=== PATIENT | female | born 1985 | race Caucasian/White ===

== ENCOUNTER → 2018-12-27 | Outpatient (CLI) | payer BC, OTHER ==
--- NOTE | 2018-12-30 07:48 | USB ---
Reason for exam: clinical finding. Indicated problem(s): lump or thickening in the left breast. Physical Findings: Nurse Summary: Patient complains of left breast lump 2 weeks ago, bruising resolving x 1 week (nurse mj). US Breast LT Left complete breast ultrasound includes all four quadrants, the retroareolar region and axilla. Finding demonstrates a 4 x 2 x 5mm oval, hypoechoic lesion at 2 o'clock at area of concern. These results were verbally communicated with the patient and result sheet given to the patient on 12/27/18. ASSESSMENT: Probably benign, BI-RAD 3 RECOMMENDATION: Ultrasound of the left breast in 3 months. Manage patient on a clinical basis.
== END | disposition home or self-care (01) ==
LOC: RADUSWWP 14:39
PROVIDERS: ATTEND Nurse Practitioner Family
DX: N63.20 Unspecified lump in the left breast, unspecified quadrant (principal)

== ENCOUNTER → 2020-01-09 | Outpatient (CLI) | payer OTHER ==
--- NOTE | 2020-01-09 11:01 | US ---
EXAMINATION TYPE: Transabdominal DATE OF EXAM: 01/09/2020 10:48 AM COMPARISON: NONE CLINICAL HISTORY: Z36 Confirm dates. EXAM PERFORMED: EXAM MEASUREMENTS: GESTATIONAL AGE / DATING Physician Established: Not yet established Dates by LMP: (8 weeks/6 days) EDC: 08/14/20 Dates by First Scan: No previous this is first scan Dates by Current Scan for: (9 weeks/ 0 days) EDC: 08/13/20 MATERNAL ANATOMY Uterus: 10.3 x 8.3 x 7.0cm Right Ovary: 2.3 x 1.3 x 1.5cm Left Ovary: 3.3 x 2.0 x 2.0cm Post CDS / Adnexa: wnl Presence of free fluid: no GESTATION / SURVEY CRL: 2.2cm (9 weeks/0 days) Yolk Sac (normal less than 6mm): 3mm Heart Rate: 144 bpm Rhythm: Normal IUP: Live IUP Date of LMP: 11/08/19 Beta HcG (if available): Not available at this time IMPRESSION: Single live intrauterine with a sonographic age of 9 weeks and 0 days and estim ated date of delivery of 08/13/2020, concordant with menstrual age.
[2020-01-09 12:18] LABS: HCT 45.8 % (34.0-46.0); HGB 14.7 gm/dL (11.4-16.0); MCH 29.1 pg (25.0-35.0); MCHC 32.2 g/dL (31.0-37.0); MCV 90.4 fL (80.0-100.0); Mean Platelet Volume 7.9; Platelet Count 233 k/uL (150-450); RBC 5.07 m/uL (3.80-5.40); RDW 12.2 % (11.5-15.5); WBC 9.6 k/uL (3.8-10.6)
[2020-01-09 12:25] LABS: African American GFR (CKD) >90 (>60 ml/min/1.73 sqM); Glucose 70 mg/dL (74-99); Non-African American GFR(CKD) >90 (>60 ml/min/1.73 sqM)
[2020-01-09 20:34] LABS: Hepatitis B Surface Antigen Non-Reactive (Non-Reactive)
[2020-01-13 05:00] LABS: Toxoplasma Antibody (IgG) <3.0 IU/mL (<7.2); Toxoplasma Antibody (IgM) <3.0 AU/mL (<8.0)
== END | disposition home or self-care (01) ==
LOC: RADUSWWP 10:18
PROVIDERS: ATTEND Obstetrics & Gynecology
DX: Z36.89 Encounter for other specified antenatal screening (principal); Z34.81 Encounter for supervision of other normal pregnancy, first trimester; Z3A.09 9 weeks gestation of pregnancy
CPT/HCPCS: 76801; 82565; 82947; 85027; 86762; 86777; 86778; 86780; 86850; 86900; 86901; 87340

== ENCOUNTER → 2020-03-24 | Outpatient (CLI) | payer OTHER ==
--- NOTE | 2020-03-24 16:21 | US ---
EXAMINATION TYPE: US OB anatomy transabd DATE OF EXAM: 03/24/2020 COMPARISON: US 2019 HISTORY: O36.62X0 Large for dates 2nd trimester LGA TECHNIQUE: Transabdominal (TA) EXAM MEASUREMENTS: GESTATIONAL AGE / DATING Physician Established: (20 weeks/1 days) EDC: 08/10/2020 Dates by LMP: (19 weeks/4 days) EDC: 08/14/2020 Dates by First Scan: (19 weeks/5 days) EDC: 08/13/2020 Dates by Current Scan for: (20 weeks/1 days) EDC: 08/10/2020 SURVEY IUP: Single PLACENTA: Posterior PREVIA: No previa ROSS: 11.4 cm Normal CERVICAL LENGTH (transabdominal: norm > 3.0cm): 4.5 cm BIOMETRY PRESENTATION: Breech LIE: Transverse lie BPD: 4.7 cm 20 weeks / 2 days HC: 18.0 cm 20 weeks / 3 days AC: 15.6 cm 20 weeks / 5 days FL: 3.3 cm 20 weeks / 2 days ESTIMATED WEIGHT IN GRAMS: 357.9 grams ESTIMATED WEIGHT IN LBS/OZ: 0 lbs. 13 oz. WEIGHT PERCENTAGE BASED ON ESTABLISHED DATE: 66 % HC/AC: 1.15 Normal FL/AC: 21.12 HEART RATE: 153 bpm RHYTHM: Normal ANATOMY SEEN (within normal limits): * Lateral Vent (< 1 cm) 0.7 cm * Cisterna Magna (< 1.1 cm) 0.5 cm * Nuchal Fold (< 0.6 cm) 0.3 cm * Cerebellum (varies with age) 1.8 cm Choroid Plexus (bilateral) Midline Falx Cavus Septi Pellucidi Four Chamber Heart Outflow tracts: LVOT/RVOT Stomach Situs Nose / Lips Diaphragm Kidneys (bilateral) Bilateral renal pelvis measuring 0.3cm Bladder Cord Insert Three Vessel Cord Longitudinal Spine Transverse Spine Arms (bilateral) Legs (bilateral) Viable single IUP measuring 20 weeks 1 day with a heart rate of 153bpm and an estimated delivery date of 08/10/2020. IMPRESSION: 1. Single intrauterine gestation estimated at 20 weeks 1 day gestation. Cardiac activity measures 15 3 bpm.
== END | disposition home or self-care (01) ==
LOC: RADUSWWP 09:32
PROVIDERS: ATTEND Obstetrics & Gynecology
DX: O36.62X0 Maternal care for excessive fetal growth, second trimester, not applicable or unspecified (principal); Z3A.20 20 weeks gestation of pregnancy
CPT/HCPCS: 76811

== ENCOUNTER → 2020-04-30 | Outpatient (CLI) | payer OTHER ==
[2020-04-30 09:40] LABS: HCT 38.9 % (34.0-46.0); MCH 30.7 pg (25.0-35.0); MCHC 33.6 g/dL (31.0-37.0); MCV 91.4 fL (80.0-100.0); Mean Platelet Volume 7.3; Platelet Count 232 k/uL (150-450); RBC 4.25 m/uL (3.80-5.40); RDW 12.9 % (11.5-15.5); WBC 9.6 k/uL (3.8-10.6)
== END | disposition home or self-care (01) ==
LOC: LABWHC1 07:39
PROVIDERS: ATTEND Obstetrics & Gynecology
DX: Z34.82 Encounter for supervision of other normal pregnancy, second trimester (principal); Z3A.00 Weeks of gestation of pregnancy not specified
CPT/HCPCS: 36415; 82950; 85027

== ENCOUNTER → 2020-07-14 | Outpatient (CLI) | payer OTHER ==
--- NOTE | 2020-07-14 09:29 | US ---
EXAMINATION TYPE: US OB >= 14 wk fetus DATE OF EXAM: 07/14/2020 COMPARISON: US's CLINICAL HISTORY: O36.63X0 Large for dates TECHNIQUE: Transabdominal (TA) GESTATIONAL AGE / DATING Physician Established: (35 weeks/4 days) EDC: 08/14/2020 Dates by LMP: (35 weeks/4 days) EDC: 08/14/2020 Dates by First Scan: (35 weeks/5 days) EDC: 08/13/2020 Dates by Current Scan: (38 weeks/2 days) EDC: 07/26/2020 Beta HCG (if available): not available SURVEY IUP: Single PLACENTA: Posterior PREVIA: No Previa ROSS: 12.6 cm Normal CERVICAL LENGTH (transabdominal: norm > 3.0cm): 4.1 cm BIOMETRY PRESENTATION: Vertex BPD: 9.4 cm 38 weeks / 3 days HC: 33.9 cm 39 weeks / 0 days AC: 35.3 cm 39 weeks / 1 days FL: 7.5 cm 38 weeks / 2 days ESTIMATED WEIGHT IN GRAMS: 3616 grams ESTIMATED WEIGHT IN LBS/OZ: 8 lbs. 0 oz. WEIGHT PERCENTAGE BASED ON ESTABLISHED DATES: >97% HC/AC: 0.96 Normal FL/AC: 21.2 Normal HEART RATE: 137 bpm RHYTHM: Normal Growth in the greater than 97th percentile. Patient has appointment with OB doctor this am. 4 chamber heart, stomach, kidneys, and bladder seen and appear normal. IMPRESSION: Single viable intrauterine . Correlate for macrosomia.
== END | disposition home or self-care (01) ==
LOC: RADUSWWP 08:44
PROVIDERS: ATTEND Obstetrics & Gynecology
DX: O36.63X0 Maternal care for excessive fetal growth, third trimester, not applicable or unspecified (principal)
CPT/HCPCS: 76805

== ENCOUNTER 2020-08-06 05:55 | Inpatient (IN) | payer OTHER ==
[2020-08-05 08:23] VITALS: BMI 33.1
--- NOTE | 2020-08-05 13:01 | P.HPOB ---
History of Present Illness H&P Date: 08/05/20 Chief Complaint: Requested repeat section and macrosomia This patient is a pleasant 35-year-old 2 para 1 female estimated date of confinement 08/13/2020 estimated gestational age 39-0/7 weeks gestation who is admitted to labor and delivery for elective repeat section. Patient a previous section for macrosomia and this baby appears larger as well as requested repeat . Patient's has otherwise been uncomplicated. Review of Systems Genitourinary: Reports Menstruation: Reports amenorrhea Past Medical History Past Medical History: No Reported History Additional Past Medical History / Comment(s): Previous primary section for macrosomia. History of Any Multi-Drug Resistant Organisms: None Reported Past Surgical History: Section Past Anesthesia/Blood Transfusion Reactions: Motion Sickness Additional Past Anesthesia/Blood Transfusion Reaction / Comment(s): b/p dropped with anesthesia with csection Past Psychological History: No Psychological Hx Reported Smoking Status: Never smoker Past Alcohol Use History: None Reported Past Drug Use History: None Reported - Past Family History Mother History Unknown: Yes Family Medical History: Musculoskeletal Disorder Additional Family Medical History / Comment(s): Muscular Dystrophy Father Family Medical History: Cancer Additional Family Medical History / Comment(s): prostate CA Medications and Allergies Home Medications Medication Instructions Recorded Confirmed Type Pnv,Calcium 72/Iron/Folic Acid 1 each PO DAILY 07/03/16 08/05/20 History [ Plus Tablet] L.acidoph,Paracasei, B.lactis 1 each PO DAILY 08/05/20 08/05/20 History [Probiotic] Allergies Allergy/AdvReac Type Severity Reaction Status Date / Time Penicillins Allergy Rash/Hives Verified 08/05/20 08:17 Sulfa (Sulfonamide Allergy Swelling,severe Verified 08/05/20 08:17 Antibiotics) headache Exam Intake and Output 08/04/20 08/05/20 08/05/20 22:59 06:59 14:59 Other: Weight 87.543 kg - OBG Physical Exam Abdomen: bowel sounds normal, no diffuse tenderness, no bruit present, no guarding noted, no hepatomegaly, no splenomegaly, no mass Vulva: both: normal Vagina: normal moisture, no discharge Cervix: no lesion, no discharge Uterus: enlarged (Vital height is 43 cm) Results blood work shows she is A positive, rubella immune, RPR nonreactive, hepatitis B negative, HIV is nonreactive, Glucola was normal, group B strep was negative, anatomy ultrasounds have been normal. Assessment and Plan Assessment: This is a pleasant 35-year-old 2 para 1 female 39-0/7 weeks gestation admitted for elective repeat section secondary to previous section and history of macrosomia. Plan is repeat low transverse section. Patient I discussed the surgery and risks and risks of infection, bleeding, possible injury bowel, bladder, vessels, and/or other organs. All the patient's questions are answered written consent is obtained. (1) 39 weeks gestation of Status: Acute Code(s): Z3A.39 - 39 WEEKS GESTATION OF SNOMED Code(s): 78281772 (2) Previous delivery affecting Status: Acute Code(s): O34.219 - MATERNAL CARE FOR UNSP TYPE SCAR FROM PREVIOUS DEL SNOMED Code(s): 686738017
[2020-08-06] MEDS ORDERED: LACTATED RINGERS 1,000 ML IV ONE (06:22)
[2020-08-06] MEDS ORDERED: LACTATED RINGERS 1,000 ML IV SCH (06:22)
[2020-08-06] MEDS ORDERED: CITRIC ACID-SODIUM CITRATE 15 ML CUP PO ONE (06:22)
[2020-08-06 06:33] LABS: Basophils % (A) 0 %; Eosinophils # (A) 0.2 k/uL (0-0.7); Eosinophils % (A) 2 %; HCT 41.8 % (34.0-46.0); HGB 14.7 gm/dL (11.4-16.0); Lymphocytes # (A) 1.4 k/uL (1.0-4.8); Lymphocytes % (A) 15 %; MCH 31.2 pg (25.0-35.0); MCHC 35.1 g/dL (31.0-37.0); MCV 88.8 fL (80.0-100.0); Monocytes # (A) 0.7 k/uL (0-1.0); Monocytes % (A) 8 %; Neutrophils # (A) 6.8 k/uL (1.3-7.7); Neutrophils % (A) 73 %; Platelet Count 201 k/uL (150-450); RDW 12.3 % (11.5-15.5); WBC 9.3 k/uL (3.8-10.6)
[2020-08-06] MEDS ORDERED: KETOROLAC 15 MG/ML 1 ML VIAL ONE (07:52)
[2020-08-06] MEDS ORDERED: PHENYLEPHRINE 10 MG/ML VIAL ONE (07:52)
[2020-08-06] MEDS ORDERED: fentaNYL (PF) 50 MCG/ML 2 ML AMP ONE (07:52)
[2020-08-06] MEDS ORDERED: OXYTOCIN 10 UNIT/ML 1 ML VIAL ONE (07:52)
[2020-08-06] MEDS ORDERED: ONDANSETRON 4 MG/2 ML VIAL ONE (07:52)
[2020-08-06] MEDS ORDERED: KETOROLAC 15 MG/ML 1 ML VIAL IVP PRN (08:26)
[2020-08-06] MEDS ORDERED: ONDANSETRON 4 MG/2 ML VIAL IVP PRN (08:26)
[2020-08-06] MEDS ORDERED: HYDROmorphone 0.5 MG/0.5 ML SYRINGE IVP PRN (08:26)
[2020-08-06] MEDS ORDERED: NALOXONE 0.4 MG/ML 1 ML VIAL IV PRN (08:26)
[2020-08-06] MEDS ORDERED: OXYTOCIN 20 UNITS/1000 ML NS 1,000 ML IV SCH (09:00)
[2020-08-06] MEDS ORDERED: ZOLPIDEM 5 MG TAB PO PRN (09:00)
[2020-08-06] MEDS ORDERED: HYDROcodone/APAP 5-325MG 1 EACH TAB PO PRN (09:00)
[2020-08-06] MEDS ORDERED: diphenhydrAMINE 25 MG CAP PO PRN (09:00)
[2020-08-06] MEDS ORDERED: METOCLOPRAMIDE 5 MG/ML 2 ML VIAL IVP PRN (09:00)
[2020-08-06] MEDS ORDERED: diphenhydrAMINE 50 MG/ML 1 ML VIAL IVP PRN (09:00)
[2020-08-06] MEDS ORDERED: ACETAMINOPHEN TAB 325 MG TAB PO PRN (09:00)
[2020-08-06] MEDS ORDERED: SIMETHICONE 80 MG CHEWABLE PO PRN (09:00)
--- NOTE | 2020-08-06 09:12 | P.OP ---
Date of Procedure: 08/06/20 Preoperative Diagnosis: #1: 39-0/7 week intrauterine . #2: Previous section desires repeat. #3: macrosomia Postoperative Diagnosis: Same Procedure(s) Performed: Repeat low transverse section Anesthesia: spinal Surgeon: Trent Yanez Reel Tender #1: Liliane Owens Estimated Blood Loss (ml): 800 Pathology: none sent Condition: stable Disposition: observation Indications for Procedure: Please see dictated H&P for intimate details of this patient's admission. Brief summary this is a pleasant 35-year-old 2 para 1 female 39-0/7 weeks gestation who is admitted to labor and delivery for elective repeat se ction. Patient and I have discussed the surgery and risks and risks of infection, bleeding, possible injury bowel, bladder, vessels, and/or other organs. All the patient's questions are answered written consent is obtained. Operative Findings: This is a vigorous viable male Apgars 9 and 9 delivery time is 0818 hours. Infant appeared grossly normal. weight was 9 lbs. 6 oz. Description of Procedure: This patient has a Abarca catheter placed to straight drain. She subsequently taken to the operating room and after the appropriate timeout spinal anesthetic is administered without incident. With an adequate level of anesthesia she has abdominal prep and drape. Scalpels and taken the previous Pfannenstiel incision is incised. A second scalpel is taken down to the fascia the fascia scored with a knife. Fascial incision extended bilaterally using the Albarran scissors. Fascia is dissected off the rectus muscles sharply. Rectus muscles are the peritoneum identified and entered sharply. Peritoneal incision extended superior and inferior without difficulty. Bladder blade is then placed. The bladder peritoneum was then taken sharply off the lower uterine segment. Scalpels and taken low transverse uterine incision is then made. Using a hemostat I enter the uterine cavity bluntly. There is loss of clear fluid. 's head is then guided through the incision with fundal pressure delivered. Mouth and nares are bulb suctioned. There is no evidence of a nuchal cord. With more fundal pressure we then have deliver the rest of this 's body. This is a vigorous viable male infant Apgars are 9 and 9 delivery time is 0818 hours. has spontaneous respiration and cry and grossly appears normal. The umbilical cord is doubly clamped and cut appears to be trivascular. The placenta is then manually extracted intact. Uterus is then externalized and uterine incision demarcated with Pickard clamps. Uterine incision is then closed using 0 Vicryl running locked fashion 2 layers. Good hemostasis is noted. The bladder peritoneum was then reapproximated using a 3-0 Vicryl. Excess fluid is then removed from the abdomen and pelvis. Uterus, tubes, ovaries all appear normal. Uterus placed back into the abdomen. Parietal peritoneum was then done of 5 then closed using 0 Vicryl running fashion. Rectus muscles reapproximated in 0 Vicryl interrupted fashion. Fascial incision is then closed using 0 PDS. Fascial incision is intact and hemostatic. Subcutaneous tissues and closed using a 3-0 Vicryl usual fashion. Skin is and closed using pradeep. Sterile dressing is applied. All counts are correct 3. There are no complications. and mother are taken to the birthing suite in satisfactory condition.
[2020-08-06] MEDS: SENNOSIDES-DOCUSATE SODIUM 1 EACH TAB PO SCH (20:04)
[2020-08-07] MEDS: LACTATED RINGERS 1,000 ML IV SCH ×3 (00:05→19:56)
[2020-08-07 07:23] LABS: Basophils % (A) 0 %; Eosinophils # (A) 0.2 k/uL (0-0.7); Eosinophils % (A) 1 %; HCT 37.2 % (34.0-46.0); HGB 13.3 gm/dL (11.4-16.0); Lymphocytes # (A) 1.3 k/uL (1.0-4.8); Lymphocytes % (A) 11 %; MCH 31.9 pg (25.0-35.0); MCHC 35.6 g/dL (31.0-37.0); MCV 89.4 fL (80.0-100.0); Mean Platelet Volume 7.2; Monocytes # (A) 0.9 k/uL (0-1.0); Monocytes % (A) 8 %; Neutrophils # (A) 9.3 k/uL (1.3-7.7); Neutrophils % (A) 78 %; Platelet Count 182 k/uL (150-450); RBC 4.16 m/uL (3.80-5.40); RDW 12.2 % (11.5-15.5); WBC 11.9 k/uL (3.8-10.6)
[2020-08-07] MEDS: SENNOSIDES-DOCUSATE SODIUM 1 EACH TAB PO SCH ×2 (08:36→19:48)
--- NOTE | 2020-08-07 08:47 | P.PN ---
Progress Note - Text Date: 08/07/2020 Time: 08:34 The patient is status post section Vital signs stable VAS: 0-10 Patient has no complaints of pain. The patient incurred some minimal itching yesterday, this itching is now subsiding. Pain meds to be managed by service.
--- NOTE | 2020-08-07 11:13 | P.PNOBGPC ---
Subjective - Subjective Principal diagnosis: Postoperative day 1 Interval history: Shauna is doing very well postop day 1. She is ambulating, voiding and tolerating her diet. She voices no complaints. All questions are answered for this morning. Likely discharge to home tomorrow Objective - Vital Signs Latest vital signs: Vital Signs Temp Pulse Resp BP Pulse Ox 08/07/20 08:28 17 08/07/20 08:00 98.1 F 84 16 129/81 98 08/07/20 07:00 14 08/07/20 05:00 14 08/07/20 03:51 98.5 F 72 14 125/82 100 08/07/20 03:00 14 08/07/20 01:00 14 08/07/20 00:05 98.6 F 71 16 116/77 98 08/06/20 22:57 18 08/06/20 21:00 16 98 08/06/20 19:45 98.4 F 76 16 138/90 97 08/06/20 19:00 16 08/06/20 17:00 98 08/06/20 16:00 99.0 F 71 16 121/78 08/06/20 15:00 16 08/06/20 13:00 14 08/06/20 12:00 99.0 F 83 14 131/84 Intake and Output 08/06/20 08/07/20 08/07/20 22:59 06:59 14:59 Output Total 2200 400 800 Balance -2200 -400 -800 Output: Urine 2200 400 800 Uretheral (Abarca) 1000 Other: Voiding Method Toilet # Voids 1 1 - Exam Lungs: bilateral: normal Chest: Normal S1, Normal S2 Extremities: Present: normal Abdomen: Present: normal appearance, soft. Absent: distention, tenderness Incision: Present: normal, dry, intact Uterus: Present: normal, firm - Labs Labs: Abnormal Lab Results - Last 24 Hours (Table) 08/07/20 Range/Units 06:31 WBC 11.9 H (3.8-10.6) k/uL Neutrophils # 9.3 H (1.3-7.7) k/uL
[2020-08-07] MEDS: IBUPROFEN 600 MG TAB PO PRN ×2 (12:06→19:48)
[2020-08-07 16:40] VITALS: RESP 16
[2020-08-07 23:29] VITALS: PULSE 73
[2020-08-08] MEDS: IBUPROFEN 600 MG TAB PO PRN ×2 (04:49→10:26)
[2020-08-08 08:08] VITALS: BP 117/78; TEMP 98.6
--- NOTE | 2020-08-08 11:13 | P.DS ---
Providers Date of admission: 08/06/20 05:55 Expected date of discharge: 08/08/20 Attending physician: Trent Yanez Primary care physician: Stated None Hospital Course: Patient is doing very well post op day 2. She is ambulating, voiding and tolerating her diet. She voices no complaints and is she is requesting discharge home today. Prescriptions for pain reliever have been provided. All questions were answered for her discharge instructions were thoroughly reviewed. She is aware to follow up with Dr. Yanez in 1 week. Pradeep will be removed prior to discharge. On physical exam vital signs are stable and afebrile. Heart regular, lungs clear, extremities without pain. Abdomen soft uterus is firm and her incision is otherwise clean dry and intact. She does have bowel sounds. Assessment postop day 2. Plan discharged home follow up with Dr. Zuñiga in 1 week and remove pradeep prior to discharge. Patient Condition at Discharge: Good Plan - Discharge Summary Discharge Rx Participant: No New Discharge Prescriptions: New Ibuprofen [Motrin] 600 mg PO Q6HR PRN #40 tab PRN Reason: Mild Pain Or Fever >= 100.5 HYDROcodone/APAP 5-325MG [Kunia 5-325] 1 each PO Q4HR PRN #18 tab PRN Reason: Moderate Pain No Action Pnv,Calcium 72/Iron/Folic Acid [ Plus Tablet] 1 each PO DAILY L.acidoph,Paracasei, B.lactis [Probiotic] 1 each PO DAILY Discharge Medication List Pnv,Calcium 72/Iron/Folic Acid [ Plus Tablet] 1 each PO DAILY 07/03/16 [History] L.acidoph,Paracasei, B.lactis [Probiotic] 1 each PO DAILY 08/05/20 [History] HYDROcodone/APAP 5-325MG [Kunia 5-325] 1 each PO Q4HR PRN #18 tab 08/06/20 [Rx] Ibuprofen [Motrin] 600 mg PO Q6HR PRN #40 tab 08/06/20 [Rx] Follow up Appointment(s)/Referral(s): Trent Yanez MD [STAFF PHYSICIAN] - 08/18/20 11:30 am (Patient also has a visit on September 15 at 2:30 PM.) Patient Instructions/Handouts: (DC) Activity/Diet/Wound Care/Special Instructions: No strenuous activity or heavy lifting for 6 weeks. Please call if any fever, chills, excessive vaginal bleeding, and/or abdominal pain. Discharge Disposition: HOME SELF-CARE
== END 2020-08-08 12:45 | disposition home or self-care (01) | DRG 788 ==
LOC: 4FBP 05:55
PROVIDERS: ADMIT Obstetrics & Gynecology; ATTEND Obstetrics & Gynecology
PROC: 10D00Z1 Extraction of Products of Conception, Low, Open Approach (ICD-10-PCS; principal; 2020-08-06 08:00)
DX: O34.211 Maternal care for low transverse scar from previous cesarean delivery (principal); O36.63X0 Maternal care for excessive fetal growth, third trimester, not applicable or unspecified; Z37.0 Single live birth; Z3A.39 39 weeks gestation of pregnancy; Z82.69 Family history of other diseases of the musculoskeletal system and connective tissue; Z88.0 Allergy status to penicillin; Z88.2 Allergy status to sulfonamides
CPT/HCPCS: 85025; 86850; 86900; 86901